=== PATIENT | male | born 2000 | race African-American/Black ===

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

== ENCOUNTER 2019-09-15 19:28 | Emergency (ER) | payer SELFPAY ==
[2019-09-15 20:57] LABS: A TYPE INFLUENZA AG NEGATIVE (NEGATIVE); B INFLUENZA AG POSITIVE (NEGATIVE)
--- NOTE | 2019-09-15 21:26 | RADIOLOGY REPORT (SQ) ---
EXAM DESCRIPTION: XR CHEST 2 VIEWS COMPLETED DATE/TME: 09/15/2019 20:10 CLINICAL HISTORY: 18 years Male cough/fever COMPARISON: None. FINDINGS: The cardiomediastinal silhouette appears unremarkable. No consolidating infiltrates or pleural effusions. No pneumothorax. IMPRESSION: No acute abnormality is identified.
[2019-09-15] MEDS ORDERED: ONDANSETRON ODT 4 MG TAB (6 TAB/ER DISP) PO PRN (22:44)
[2019-09-15] MEDS ORDERED: IBUPROFEN 600 MG TABLET PO ONE (22:44)
[2019-09-15] MEDS ORDERED: ACETAMINOPHEN 325 MG TABLET PO ONE (22:44)
--- NOTE | 2019-09-15 22:47 | ER Document Report ---
HPI - HPI Time Seen by Provider: 09/15/19 19:44 Pain Level: 3 Context: Patient is a 18-year-old male that comes to the emergency department for chief complaint of body aches, fevers, mild cough, congestion, nausea. Symptoms started 2 days ago. He denies vomiting, diarrhea, difficulty breathing, chest pain. He does report sick contacts. He denies any daily medications or past medical history. He denies IV drug abuse. He has not had the influenza vaccine. Past Medical History - General Information source: Patient - Social History Smoking Status: Never Smoker Chew tobacco use (# tins/day): No Drug Abuse: None Lives with: Family Family History: Reviewed & Not Pertinent Patient has suicidal ideation: No Patient has homicidal ideation: No - Medical History Medical History: Negative Renal/ Medical History: Denies: Hx Peritoneal Dialysis Surgical Hx: Negative - Immunizations Hx Diphtheria, Pertussis, Tetanus Vaccination: Yes Vertical Provider Document - CONSTITUTIONAL General Appearance: WD/WN, No Apparent Distress - INFECTION CONTROL TRAVEL OUTSIDE OF THE [place] IN LAST 30 DAYS: No - HEENT HEENT: Atraumatic, Normocephalic. negative: Normal ENT Exam - Mild nasal congestion, patent airway with unremarkable oropharyngeal exam, unremarkable ears and eyes - NECK Neck: Normal Inspection - RESPIRATORY Respiratory: Breath Sounds Normal, No Respiratory Distress - Occasional mild cough. negative: Wheezing - CARDIOVASCULAR Cardiovascular: Regular Rate, Regular Rhythm - GI/ABDOMEN Gastrointestinal: Abdomen Soft, Abdomen Non-Tender. negative: Abdomen Tender, Abdominal Guarding - BACK Back: Normal Inspection - MUSCULOSKELETAL/EXTREMETIES Musculoskeletal/Extremeties: MAEW, FROM, Non-Tender - NEURO Level of Consciousness: Awake, Alert, Appropriate - DERM Integumentary: Warm, Dry, No Rash Course - Re-evaluation Re-evalutation: Patient with some congestion, occasional cough, soft abdomen, normal oral pharyngeal exam, no nuchal rigidity or headache. I did review chest x-ray and this was negative, I did review remaining testing and influenza B is positive. This is consistent with patient's presentation. Unremarkable vital signs. Discussed with patient different options. He was provided with nausea medication, he declined Tamiflu after discussion of pros and cons, he will be provided with work release. Discussed return precautions. He states appreciation and agreement. Stable at time of discharge. - Vital Signs Vital signs: Temp Pulse Resp BP Pulse Ox 98.2 F 94 16 138/69 H 97 09/15/19 19:32 09/15/19 19:32 09/15/19 19:32 09/15/19 19:32 09/15/19 19:32 Discharge - Discharge Clinical Impression: Influenza B, Cough, Body aches, Nausea Condition: Stable Disposition: HOME, SELF-CARE Additional Instructions: Your testing is positive for influenza B. Your chest x-ray does not show any concerning findings. This is a viral illness that should gradually resolve with time. Recommendations: Treat body aches and fever with 1000 mg of Tylenol and 600 mg of ibuprofen every 6 hours, take Phenergan if needed for nausea, drink plenty of fluids and rest. You can also take other [id number] medications if desired. Follow-up with primary care. Return if you worsen including uncontrolled vomiting, difficulty breathing, or any other concerning or worsening symptoms. Prescriptions: Promethazine HCl [Phenergan 25 mg Tablet] 25 mg PO Q6H PRN #20 tablet PRN Reason: Forms: Return to Work
[2019-09-15 23:10] VITALS: BP 132/61
== END 2019-09-15 23:12 | disposition home or self-care (01) ==
LOC: ER 19:28
DX: J10.1 Influenza due to other identified influenza virus with other respiratory manifestations (principal); R52 Pain, unspecified; R50.9 Fever, unspecified; R05 Cough; R11.0 Nausea; R09.81 Nasal congestion
CPT/HCPCS: 71046; 87804; 99283

== ENCOUNTER 2020-03-13 10:37 | Emergency (ER) | payer SELFPAY ==
--- NOTE | 2020-03-13 12:01 | ER Document Report ---
ED General - General Chief Complaint: Congestion Stated Complaint: CONGESTION Time Seen by Provider: 03/13/20 11:11 Mode of Arrival: Ambulatory Information source: Patient TRAVEL OUTSIDE OF THE [place] IN LAST 30 DAYS: No - HPI Onset: Other - 3 days Onset/Duration: Gradual Quality of pain: Achy Severity: Mild Context: Patient complains of sinus congestion eyes being red and some mild body aches. No known covid exposures. Associated symptoms: Body/muscle aches, Nonproductive cough, Sinus pain/drainage, Sore throat Exacerbated by: Denies Relieved by: Denies Similar symptoms previously: No Recently seen / treated by doctor: No - Related Data Allergies/Adverse Reactions: No Known Allergies Allergy (Verified 09/15/19 19:59) Past Medical History - General Information source: Patient - Social History Smoking Status: Current Some Day Smoker Frequency of alcohol use: None Drug Abuse: None Family History: Reviewed & Not Pertinent Renal/ Medical History: Denies: Hx Peritoneal Dialysis - Immunizations Hx Diphtheria, Pertussis, Tetanus Vaccination: Yes Review of Systems - Review of Systems Constitutional: denies: Chills, Fever Cardiovascular: denies: Chest pain, Palpitations Respiratory: Cough. denies: Short of breath Physical Exam - Vital signs Vitals: Temp Pulse Resp BP Pulse Ox 98.0 F 86 18 142/83 H 95 03/13/20 10:47 03/13/20 10:47 03/13/20 10:47 03/13/20 10:47 03/13/20 10:47 Interpretation: Normal - General General appearance: Appears well, Alert - HEENT Head: Normocephalic, Atraumatic Eyes: Normal Conjunctiva: Injected Pupils: PERRL Nasal: Swelling, Clear rhinorrhea Mouth/Lips: Normal Mucous membranes: Moist Pharynx: Erythema. No: Exudate Neck: Normal - Respiratory Respiratory status: No respiratory distress Chest status: Nontender Breath sounds: Normal Chest palpation: Normal - Cardiovascular Rhythm: Regular Heart sounds: Normal auscultation Murmur: No - Abdominal Inspection: Normal Distension: No distension Bowel sounds: Normal Tenderness: Nontender Organomegaly: No organomegaly - Back Back: Normal, Nontender - Extremities General upper extremity: Normal inspection, Nontender, Normal color, Normal ROM, Normal temperature General lower extremity: Normal inspection, Nontender, Normal color, Normal ROM, Normal temperature, Normal weight bearing. No: Francoise's sign - Neurological Neuro grossly intact: Yes Cognition: Normal Orientation: AAOx4 [place] Coma Scale Eye Opening: Spontaneous [place] Coma Scale Verbal: Oriented Tere Coma Scale Motor: Obeys Commands [place] Coma Scale Total: 15 Speech: Normal Motor strength normal: LUE, RUE, LLE, RLE Sensory: Normal - Psychological Associated symptoms: Normal affect, Normal mood - Skin Skin Temperature: Warm Skin Moisture: Dry Skin Color: Normal Course - Vital Signs Vital signs: Temp Pulse Resp BP Pulse Ox 98.0 F 86 18 142/83 H 95 03/13/20 10:47 03/13/20 10:47 03/13/20 10:47 03/13/20 10:47 03/13/20 10:47 Discharge - Discharge Clinical Impression: URI (upper respiratory infection) Qualifiers: URI type: unspecified URI Qualified Code(s): J06.9 - Acute upper respiratory infection, unspecified Condition: Stable Disposition: HOME, SELF-CARE Instructions: Upper Respiratory Illness ([facility]) Additional Instructions: please quarantine yourself until your Covid results have returned. Prescriptions: Amoxicillin 1 tab PO TID 10 Days #30 tab Erythromycin Base [Erythromycin Oph 1 Gm Oint Ud] 1 applic OU Q2 7 Days #1 tube Forms: Return to Work Referrals: [facility] [Provider Group] - Follow up as needed
[2020-03-13 12:20] VITALS: BP 138/80
== END 2020-03-13 12:20 | disposition home or self-care (01) ==
LOC: ER 10:37
DX: J06.9 Acute upper respiratory infection, unspecified (principal); R09.81 Nasal congestion; M79.10 Myalgia, unspecified site; R05 Cough; J02.9 Acute pharyngitis, unspecified; F17.200 Nicotine dependence, unspecified, uncomplicated; Z20.828 Contact with and (suspected) exposure to other viral communicable diseases
CPT/HCPCS: 99283; 87635; C9803; 36415

== ENCOUNTER 2020-04-04 08:23 | Emergency (ER) | payer SELFPAY ==
[2020-04-04] MEDS ORDERED: NORMAL SALINE 1000 ML 1,000 ML IV ONE ×2 (09:14→11:27)
[2020-04-04 09:28] LABS: ABSOLUTE EOSINOPHILS # (AUTO) 1.4 10^3/uL (0.0-0.6); ABSOLUTE MONOCYTES (AUTO) 1.4 10^3/uL (0.1-1.4); ABSOLUTE NEUT (AUTO) 12.3 10^3/uL (1.7-8.2); BASOPHILS % (AUTO) 0.1 % (0-2); EOSINOPHILS % (AUTO) 8.8 % (0-6); HEMATOCRIT 42.8 % (37.9-51.0); HEMOGLOBIN 14.4 g/dL (13.5-17.0); LYMPHOCYTES % (AUTO) 6.1 % (13-45); MEAN CORPUSCULAR HGB CONC 33.6 g/dL (32.0-36.0); MEAN CORPUSCULAR VOLUME 80 fl (80-97); MONOCYTES % (AUTO) 8.7 % (3-13); PLATELET COUNT 174 10^3/uL (150-450); RED BLOOD COUNT 5.32 10^6/uL (4.35-5.55); RED CELL DISTRIBUTION WIDTH 14.1 % (11.5-14.0); SEGMENTED NEUTROPHILS % (AUTO) 76.3 % (42-78); TOTAL CELLS COUNTED % (AUTO) 100 %; WHITE BLOOD COUNT 16.1 10^3/uL (4.0-10.5)
[2020-04-04 09:38] LABS: APPEARANCE,URINE CLEAR; BILIRUBIN,URINE NEGATIVE (NEGATIVE); COLOR,URINE YELLOW; GLUCOSE, URINE NEGATIVE (NEGATIVE); KETONES,URINE 80 mg/dL (NEGATIVE); LEUKOCYTE ESTERASE,URINE NEGATIVE (NEGATIVE); NITRITE,URINE NEGATIVE (NEGATIVE); PROTEIN,URINE 100 mg/dL (NEGATIVE); URINE SPECIFIC GRAVITY 1.012
[2020-04-04 09:54] LABS: ALBUMIN 3.6 g/dL (3.5-5.0); ALKALINE PHOSPHATASE 85 U/L (38-126); ANION GAP 11 (5-19); ASPARTATE AMINO TRANSFERASE 50 U/L (17-59); BILIRUBIN,DIRECT 0.5 mg/dL (0.0-0.4); BILIRUBIN,TOTAL 2.1 mg/dL (0.2-1.3); BLOOD UREA NITROGEN 7 mg/dL (7-20); CARBON DIOXIDE 27 mmol/L (22-30); CHLORIDE 96 mmol/L (98-107); GLUCOSE 138 mg/dL (75-110); POTASSIUM 3.9 mmol/L (3.6-5.0); TOTAL PROTEIN 6.9 g/dL (6.3-8.2)
--- NOTE | 2020-04-04 09:58 | RADIOLOGY REPORT (SQ) ---
EXAM DESCRIPTION: CHEST SINGLE VIEW IMAGES COMPLETED DATE/TIME: 04/04/2020 9:39 am REASON FOR STUDY: cough, SOB COMPARISON: 09/15/2019. EXAM PARAMETERS: NUMBER OF VIEWS: One view. TECHNIQUE: Single frontal radiographic view of the chest acquired. RADIATION DOSE: NA LIMITATIONS: None. FINDINGS: LUNGS AND PLEURA: Dense infiltrate in the right upper lobe. Faint density in the right lo wer lobe. Left lung clear. No pleural effusion. No pneumothorax. MEDIASTINUM AND HILAR STRUCTURES: No masses. Contour normal. HEART AND VASCULAR STRUCTURES: Heart normal in size. Normal vasculature. BONES: No acute findings. HARDWARE: None in the chest. OTHER: No other significant finding. IMPRESSION: DENSE INFILTRATE IN THE RIGHT UPPER LOBE CONSISTENT WITH PNEUMONIA. TECHNICAL DOCUMENTATION: JOB ID: [id number] 2010 [employer]- All Rights Reserved Reading location - IP/workstation name: [email or web address]
[2020-04-04] MEDS ORDERED: ACETAMINOPHEN 325 MG TABLET ONE (10:11)
[2020-04-04] MEDS ORDERED: ACETAMINOPHEN 325 MG TABLET PO ONE (10:11)
[2020-04-04] MEDS ORDERED: CEFTRIAXONE INJ 1000 MG VIAL IV ONE (11:12)
[2020-04-04] MEDS ORDERED: AZITHROMYCIN INJ 500 MG VIAL IV ONE (11:13)
[2020-04-04] MEDS ORDERED: KETOROLAC TROMETHAMINE INJ/PF 30 MG/1 ML SDV IV ONE (11:27)
--- NOTE | 2020-04-04 11:33 | ER Document Report ---
ED General - General Chief Complaint: Cough Stated Complaint: COUGH,HEADACHE,VOMITING Time Seen by Provider: 04/04/20 10:14 TRAVEL OUTSIDE OF THE [place] IN LAST 30 DAYS: No - HPI Notes: Chief complaint: Flu symptoms History of present illness: Previously healthy 19-year-old male taking no regular medications with no known allergies now presenting with 3-day history of what he describes as possible flu symptoms. He started out with dull headache and then developed myalgias, fatigue, nausea/vomiting and then a cough. Sympt oms have gotten progressively worse. He was not aware of fever until today. He said that he felt hot when he got up although he did not take his temperature at home. He vomited twice yesterday but none today. He has had slight loss of appetite. He denies alteration of sense of taste or smell. He is beginning to produce scant amounts of yellow sputum. He denies hemoptysis. He is been 1/2 pack/day cigarette smoker up until 1 week ago. Consumes occasional social alcohol. Denies drug use. No prior hospitalizations. No major surgery. Patient denies known COVID-19 exposure. Currently living with his mother. No travel outside the area. Works in a car wash. - Related Data Allergies/Adverse Reactions: No Known Allergies Allergy (Verified 04/04/20 08:38) Past Medical History - General Information source: Patient, [facility] Records - Social History Smoking Status: Current Every Day Smoker Chew tobacco use (# tins/day): No Frequency of alcohol use: None Drug Abuse: None Lives with: Family Family History: Reviewed & Not Pertinent - Past Medical History Cardiac Medical History: Reports: None Renal/ Medical History: Denies: Hx Peritoneal Dialysis Past Surgical History: Reports: None - Immunizations Hx Diphtheria, Pertussis, Tetanus Vaccination: Yes Review of Systems - Review of Systems Notes: Constitutional: As per HPI. HENT: Negative for sore throat. Eyes: Negative for visual changes. Cardiovascular: Negative for chest pain. Respiratory: As per HPI. Gastrointestinal: As per HPI. Genitourinary: Negative for dysuria. Musculoskeletal: Mild diffuse myalgias. Skin: Negative for rash. Neurological: Dull generalized headache as per HPI. No focal weakness or numbness. 10 point ROS negative except as marked above and in HPI. Physical Exam - Vital signs Vitals: Temp Pulse Resp BP Pulse Ox 99.4 F 122 H 20 136/71 H 100 04/04/20 08:35 04/04/20 08:35 04/04/20 08:35 04/04/20 08:35 04/04/20 08:35 - Notes Notes: GENERAL: Well-developed well-nourished male approximately stated age appearing nontoxic and in no acute distress. SKIN: Mildly diaphoretic. Good turgor no rashes. HEAD: Normocephalic atraumatic. EYES: PERRLA. EOMI. Conjunctivae and sclerae clear. EARS: CANALS AND TMS CLEAR. NOSE: CLEAR. MOUTH: Moist mucosa. Good dentition. No stridor or edema. No drooling. NECK: Supple. No masses or thyromegaly. No adenopathy. Carotids 2+ without bruits. No JVD. BACK: Symmetrical without tenderness. CHEST: Deep rattling cough. Respirations unlabored. Coarse rales and rhonchi over the right upper lung wheeler. No wheezes.. HEART: Tachycardic regular rhythm. No murmur gallop or rub. ABDOMEN: Soft nontender without masses, organomegaly or rebound. Bowel sounds normally active. No bruits. GENITALIA: Deferred. EXTREMITIES: No edema. No calf tenderness. Cap refill less than 1.5 seconds. Dorsalis pedis and posterior tibial pulses 3+ and symmetrical. NEUROLOGICAL: GCS 15. Alert and oriented x3. Normal gait. Fluent speech. Cranial nerves II through XII intact. Sensorimotor and cerebellar normal. Normal tone. PSYCHIATRIC: Appropriate affect. Course - Re-evaluation Re-evalutation: 04/04/20 11:34 COVID swab requested. IV normal saline. Oral acetaminophen. Blood cultures drawn. Patient will be treated initially as a community-acquired pneumonia with initial dose of Rocephin and azithromycin IV. His oxygenation is normal. His blood pressure stable. If we can bring his temperature down and resolve his tachycardia I think he can go home on isolation with oral azithromycin and early follow-up with primary care physician. 04/04/20 13:59 Tachycardia has resolved. Fever has resolved. Good oxygenation on room air. Patient appears stable for outpatient management of his pneumonia. He understands necessity of self-isolation until he is COVID screening is reported. Findings, clinical impression and plan of treatment have been discussed with patient/family. Understanding of current findings and recommendations has been acknowledged by them and there is agreement regarding disposition and follow-up. - Vital Signs Vital signs: Temp Pulse Resp BP Pulse Ox 98.9 F 118 H 27 H 121/78 96 04/04/20 12:29 04/04/20 10:10 04/04/20 13:00 04/04/20 13:00 04/04/20 13:00 - Laboratory Result Diagrams: 04/04/20 09:00 04/04/20 09:00 Laboratory results interpreted by me: 04/04/20 04/04/20 04/04/20 09:00 09:00 09:20 WBC 16.1 H RDW 14.1 H Lymph % (Auto) 6.1 L Eos % (Auto) 8.8 H Absolute Neuts (auto) 12.3 H Absolute Eos (auto) 1.4 H Sodium 134.3 L Chloride 96 L Glucose 138 H Total Bilirubin 2.1 H Direct Bilirubin 0.5 H Urine Protein 100 H Urine Ketones 80 H Urine Blood SMALL H Urine Urobilinogen 4.0 H - Diagnostic Test Radiology reviewed: Reports reviewed - Portable chest x-ray shows dense right u pper lobe infiltrate per radiologist. Discharge - Discharge Clinical Impression: Right upper lobe pneumonia Qualifiers: Pneumonia type: due to unspecified organism Qualified Code(s): J18.9 - Pneumonia, unspecified organism Condition: Stable Disposition: HOME, SELF-CARE Additional Instructions: Pneumonia Your examination indicates that you have pneumonia. This is an infection of the lung tissue, usually caused by bacteria or a virus. Symptoms include cough, fever, shaking chills, chest pain, shortness of breath, and coughing up bloody sputum. Treatment for bacterial pneumonia includes rest, antibiotics for 10 to 14 days, increasing your clear liquid intake, a cool mist humidifier at your bedside, and fever medication. Often, a repeat chest X-ray is performed in a few weeks--even if you feel better--to ascertain whether the infection has completely resolved and no underlying lung problem is present. You may take Tylenol as needed for fever. You should call the physician if you develop persistent vomiting, high fever that does not respond to fever medication, increasing shortness of breath, confusion, or lethargy. Also, failure to improve within two to three days is an indication for re-examination. Maintain isolation at home until you are contacted with the results of your COVID testing. You should be rechecked by physician in 2 to 3 days. Return here as needed for new or worsening symptoms: Pain that is worsening or unimproved Uncontrolled vomiting High fever or shaking chills Overall worsening Prescriptions: Azithromycin 250 mg PO ASDIR PRN #6 tablet PRN Reason: Forms: Return to Work
[2020-04-04] MEDS ORDERED: LIDOCAINE 1% INJ-PF (10 MG/ML) 30 ML SDV ONE (11:52)
[2020-04-04] MEDS ORDERED: CEFTRIAXONE 1 GM/D5W RTU 0 GM/0 ML RTUPB IV ONE (11:54)
[2020-04-04] MEDS ORDERED: CEFTRIAXONE 1 GM/D5W RTU 1 GM/50 ML RTUPB IV ONE (12:19)
[2020-04-04 13:23] LABS: A TYPE INFLUENZA AG NEGATIVE (NEGATIVE); B INFLUENZA AG NEGATIVE (NEGATIVE)
[2020-04-04 14:19] VITALS: BP 123/78
--- NOTE | 2020-04-05 09:48 | ER Document Report ---
Doctor's Note Notes: 04/05/20 09:48 The patient return to the emergency room today to get a prescription for the Zithromax that was prescribed yesterday. Apparently he was not discharged with the prescription. I had to enter the original chart and add another prescription for a Z-Jace in order to produce a prescription I could sign for the patient to take to the pharmacy.
== END 2020-04-04 14:39 | disposition home or self-care (01) ==
LOC: ER 08:23
DX: J18.9 Pneumonia, unspecified organism (principal); R05 Cough; R11.2 Nausea with vomiting, unspecified; M79.10 Myalgia, unspecified site; R53.83 Other fatigue; R51 Headache; R63.0 Anorexia; R61 Generalized hyperhidrosis; F17.200 Nicotine dependence, unspecified, uncomplicated; Z20.828 Contact with and (suspected) exposure to other viral communicable diseases
CPT/HCPCS: 99283; 96361; 96375; 96365; 96367; 36415; 87040; 87070; 87205; 85025; 87635; 87077; 80053; 81001; 87804; 71045; J1885; J0696; J7030; J0456; C9803